=== PATIENT | male | born 1985 | race Asian ===

== ENCOUNTER 2018-08-30 04:36 | Emergency (ER) | payer OTHER ==
[~2018-08-30] VITALS: Ht 172.7 cm; Wt 69.9 kg
[2018-08-30 04:36] VITALS: BP_SYST 143
[2018-08-30 04:45] VITALS: BP_SYST 143
== END 2018-08-30 04:45 ==
LOC: SED 04:36
DX: Z02.83 Encounter for blood-alcohol and blood-drug test (principal)